=== PATIENT | female | born 1970 | race Caucasian/White ===

== ENCOUNTER → 2017-10-12 14:44 | Outpatient (CLI) | payer MEDICAID, SELFPAY | PROVIDERS: Visit Provider Obstetrics & Gynecology | DX: N94.9 Unspecified condition associated with female genital organs and menstrual cycle (principal); R30.0 Dysuria | CPT/HCPCS: 87070; 87086; 87205 ==

== ENCOUNTER → 2018-06-06 12:04 | Outpatient (CLI) | payer MEDICAID, SELFPAY ==
--- NOTE | 2018-06-06 12:09 | BI_ITS ---
MAMMOGRAPHY - BILATERAL SCREENING REASON FOR EXAM: Female, 48 years old. Routine annual screening examination. PERTINENT HISTORY: Non-contributory. Remote bilateral excisional breast biopsies. TECHNIQUE: Digital bilateral breast deidra (3D mammographic acquisition) in the CC and MLO projections. 2-D mediolateral oblique (MLO) and craniocaudad (CC) views of both breasts were obtained. CAD: Full Field Digital Mammography with Computer Added Detection was performed. COMPARISON: Comparison is made with prior examination dated May 19, 2017. FINDINGS: Breast Composition: There are scattered areas of fibroglandular density. There are no dominant masses or suspicious calcifications. No other significant abnormalities are identified. There has been no significant change since the prior study. BI/SCREENING MAMM (CAD), BILAT IMPRESSION: Stable bilateral screening mammogram. Yearly follow-up mammogram recommended. (A) ASSESSMENT CATEGORY: BIRADS Category 1: Negative. A letter regarding these results will be sent to the patient by the facility within 30 days. Approximately 10% of breast cancers are not detected by mammography. A normal mammogram should not delay biopsy of a clinically suspicious abnormality. [id number] Electronically Signed: Drake Morales MD at 15:46 EDT Tel [phone], Service support ,
== END ==
PROVIDERS: Family Provider Internal Medicine; PCP Internal Medicine; Referring Provider Obstetrics & Gynecology; Visit Provider Obstetrics & Gynecology
DX: Z12.31 Encounter for screening mammogram for malignant neoplasm of breast (principal)
CPT/HCPCS: 77063; 77067

== ENCOUNTER → 2019-01-09 17:48 | Outpatient (CLI) | payer MEDICAID, SELFPAY ==
[2019-01-09 15:12] VITALS: BMI 68.2
[2019-01-12 12:16] LABS: HPV APTIMA, High Risk Negative (Negative)
== END ==
PROVIDERS: Family Provider Internal Medicine; PCP Internal Medicine; Referring Provider Obstetrics & Gynecology; Visit Provider Obstetrics & Gynecology
DX: Z12.4 Encounter for screening for malignant neoplasm of cervix (principal)
CPT/HCPCS: 87624; 88175; G0145

== ENCOUNTER → 2019-04-27 13:18 | Outpatient (CLI) | payer MEDICAID, SELFPAY ==
[2019-04-09 14:25] VITALS: BMI 68.2
--- NOTE | 2019-04-27 13:19 | US_ITS ---
STUDY: ULTRASOUND OF THE FEMALE PELVIS - COMPLETE REASON FOR EXAM: Female, 49 years old. Abnormal uterine bleeding. LMP: April 15, 2019. TECHNIQUE: Transabdominal and Transvaginal TECHNICAL QUALITY: Adequate. COMPARISON: None. FINDINGS: The uterus is anteverted and is in a midline position. The uterus measures 6.3 cm x 4.7 cm x 3.2 cm. There is a Nabothian cyst of the cervix. The endometrium measures 4.0 mm in thickness, and is hyperechoic. There is no demonstrated endometrial mass. Heterogeneous echotexture of the uterus. Findings suggestive of a 3 small uterine fibroids. The largest measures 1.3 cm x 1.3 cm x 0.8 cm. I.U.D. - The patient does not have an I.U.D. The right ovary is visualized. The right ovary measures 2.4 cm x 2.1 cm x 1.8 cm. There is a 1.3 cm x 0.9 cm x 0.7 cm follicle. There is no visualized right adnexal mass or complex lesion. There is normal arterial and normal venous vascularity. The left ovary is visualized. The left ovary measures 1.9 cm x 1.7 cm x 0.9 cm. There is no left ovarian cyst or ovarian mass. There is no visualized left adnexal mass or complex lesion. There is normal arterial and normal venous vascularity. There is no fluid in the cul-de-sac. The pre void volume of the bladder was 412 ml. Polycystic ovary disease: No. US/Transvaginal Non- IMPRESSION: A heterogeneous uterine echotexture with the findings suggest left 3 small fibroids. A follicle is seen in the right ovary. Electronically Signed: Drake Morales, at 15:32 EDT , Service support ,
--- NOTE | 2019-04-27 13:19 | US_ITS ---
STUDY: ULTRASOUND OF THE FEMALE PELVIS - COMPLETE REASON FOR EXAM: Female, 49 years old. Abnormal uterine bleeding. LMP: April 15, 2019. TECHNIQUE: Transabdominal and Transvaginal TECHNICAL QUALITY: Adequate. COMPARISON: None. FINDINGS: The uterus is anteverted and is in a midline position. The uterus measures 6.3 cm x 4.7 cm x 3.2 cm. There is a Nabothian cyst of the cervix. The endometrium measures 4.0 mm in thickness, and is hyperechoic. There is no demonstrated endometrial mass. Heterogeneous echotexture of the uterus. Findings suggestive of a 3 small uterine fibroids. The largest measures 1.3 cm x 1.3 cm x 0.8 cm. I.U.D. - The patient does not have an I.U.D. The right ovary is visualized. The right ovary measures 2.4 cm x 2.1 cm x 1.8 cm. There is a 1.3 cm x 0.9 cm x 0.7 cm follicle. There is no visualized right adnexal mass or complex lesion. There is normal arterial and normal venous vascularity. The left ovary is visualized. The left ovary measures 1.9 cm x 1.7 cm x 0.9 cm. There is no left ovarian cyst or ovarian mass. There is no visualized left adnexal mass or complex lesion. There is normal arterial and normal venous vascularity. There is no fluid in the cul-de-sac. The pre void volume of the bladder was 412 ml. Polycystic ovary disease: No. US/Pelvic (Non ) IMPRESSION: A heterogeneous uterine echotexture with the findings suggest left 3 small fibroids. A follicle is seen in the right ovary. Electronically Signed: Drake Morales, at 15:32 EDT , Service support ,
== END ==
PROVIDERS: Family Provider Internal Medicine; PCP Internal Medicine; Referring Provider Obstetrics & Gynecology; Visit Provider Obstetrics & Gynecology
DX: N93.9 Abnormal uterine and vaginal bleeding, unspecified (principal)
CPT/HCPCS: 76830; 76856

== ENCOUNTER → 2019-05-07 16:41 | Outpatient (CLI) | payer MEDICAID, SELFPAY ==
--- NOTE | 2019-05-07 | EMB_PTH ---
PATIENT: LONNIE DRIVER LOC: [facility] U#:[id number] AGE/SX: 55/F ROOM: RE05/07/[address]: Dr. Laurie Potts MD : 1970 BED: DIS: SPEC #: [id number] RECD: 05/08/19 16:08 STATUS: YESSICA MARYANN #: [id number] JOURDAN: 05/07/19 00:[address]: Laurie Potts DEPT: SURGICAL PATHOLOGY RECD BY: Raffy Velez ENTERED: 05/08/19 13:25 SP TYPE: ENDOM BX/C SUJEY DR: Dr. Roselyn Goins MD Tissues: Endometrium, NOS Procedures: Surgery Specimen Level IV HEADER OPERATION: Endometrial biopsy PRE-OP DIAGNOSIS: Abnormal uterine bleeding TISSUE SUBMITTED: Endometrial biopsy MICROSCOPIC DIAGNOSIS Endometrium, biopsy: Transition endometrium with mild disorder. AM:cece 05/09/19 MICROSCOPIC DESCRIPTION Slides are reviewed. GROSS DESCRIPTION Received is one container labeled with the patient's name and not further designated. The specimen consists of multiple irregular fragments of buenrostro soft tissue that in aggregate measure 1.5 x 1 x 0.1 cm. The specimen is totally submitted in one cassette. / SJ:cece 05/08/19 TC:5 CPT: 01948 ADDENDUM ADDENDUM 05/10/2019 10:33 ADDENDUM 05/10/2019 10:33 ADDENDUM 05/10/2019 10:33 ADDENDUM 05/10/2019 10:33 ADDENDUM 05/10/2019 10:33 There is no evidence of hyperplasia.
[2019-05-07 10:56] VITALS: BMI 41.6
== END ==
PROVIDERS: Family Provider Internal Medicine; PCP Internal Medicine; Referring Provider Obstetrics & Gynecology; Visit Provider Obstetrics & Gynecology
DX: N93.9 Abnormal uterine and vaginal bleeding, unspecified (principal)
CPT/HCPCS: 88305

== ENCOUNTER → 2019-07-02 14:17 | Outpatient (CLI) | payer MEDICAID, SELFPAY ==
[2019-07-02 13:37] VITALS: BMI 41.6
[2019-07-02 14:49] LABS: Absolute Lymphocyte Count 1.58 X10^3/uL (0.83-4.51); Absolute Neutrophil Count 3.3 X10^3/uL (2.0-7.7); Basophil# 0.03 X10^3/uL; Basophil% 0.6 % (0-1); Eosinophil# 0.07 X10^3/uL; Eosinophils% 1.3 % (0-5); Hematocrit 37.8 % (37-47); Hemoglobin 12.1 g/dL (12.0-15.0); Lymphocyte # 1.58 X10^3/ul (4.0); Mean Corpuscular Hgb 29.9 pg (27.0-32.0); Mean Corpuscular Volume 93.3 fL (81-99); Mean Platelet Vol. 10.5 fl (6.2-12.0); Monocyte# 0.41 X10^3/uL; Monocyte% 7.5 % (0-10); NRBC Flagged by Analyzer 0 % (0-5); Neutrophil # 3.34 X10^3/uL (2.7-7.7); Neutrophil % 61.2 % (47-70); Platelet Count 133 K/mm3 (150-450); RBC Distribution Width CV 14.1 % (11.6-14.6); RBC Distribution Width SD 48.3 fl (35.1-43.9); Red Blood Count 4.05 M/mm3 (4.2-5.4); White Blood Count 5.5 K/mm3 (4.4-11.0)
[2019-07-02 15:26] LABS: T4 Free Direct 1.09 ng/dL (0.76-1.46); Thyroid Stim Hormone (TSH) 2.51 uIU/mL (0.358-3.74)
== END ==
PROVIDERS: Family Provider Internal Medicine; PCP Internal Medicine; Referring Provider Obstetrics & Gynecology; Visit Provider Obstetrics & Gynecology
DX: N93.9 Abnormal uterine and vaginal bleeding, unspecified (principal)
CPT/HCPCS: 36415; 84439; 84443; 85025

== ENCOUNTER 2019-10-16 08:26 | Day surgery (SDC) | payer MEDICAID, SELFPAY ==
[2019-10-10 12:04] VITALS: BMI 41.6
--- NOTE | 2019-10-13 03:57 | HP.PCM_ITS ---
- Problem List (1) Abnormal uterine bleeding Status: Acute Comment: failed IUD, plan d and c hysteroscopy rory abaltion IUD removal History and Physical Date of Admission: 10/16/19 Intake Vital Signs 10/10/19 BMI 41.6 10/10/19 Height 5 ft 3 in 10/10/19 Weight: 217 lb 10/10/19 BMI 38.4 10/10/19 BP 126/86 H Intake Visit Reasons: 2 MO FU Allergies adhesive tape Allergy (Verified 10/10/19 12:02) blisters bupropion HCl [From Wellbutrin] Allergy (Verified 10/10/19 12:02) Unknown hydrocodone Allergy (Verified 10/10/19 12:02) Unknown hydroxyzine HCl [From Atarax] Allergy (Verified 10/10/19 12:02) Unknown paliperidone Allergy (Verified 10/10/19 12:02) Other topiramate [From Topamax] Allergy (Verified 10/10/19 12:02) Other tramadol Allergy (Verified 10/10/19 12:02) Unknown ibuprofen Adverse Reaction (Verified 10/10/19 12:02) Unknown Medications Clonazepam [Klonopin] 1 mg PO DAILY 08/22/13 [History Confirmed 10/10/19] Hydroxychloroquine [Plaquenil] 200 mg PO BIDCM 08/22/13 [History Confirmed 10/10/19] Levothyroxine [Synthroid] 25 mcg PO DAILY 08/22/13 [History Confirmed 10/10/19] Loratadine [Claritin] 10 mg PO DAILY PRN 08/22/13 [History Confirmed 10/10/19] Montelukast [Singulair] 10 mg PO QHS 08/22/13 [History Confirmed 10/10/19] traZODone [Desyrel] 200 mg PO QHS 08/22/13 [History Confirmed 10/10/19] Albuterol Aerosols [Ventolin Aerosols] 2.5 mg INHALATION Q4H PRN PRN 09/01/16 [History Confirmed 10/10/19] Albuterol IH (ProAir) [Proair Hfa (SP)Vent Pts] 2 puff INHALATION Q6H PRN PRN 09/01/16 [History Confirmed 10/10/19] Clonazepam [Klonopin] 2 mg PO QHS 09/01/16 [History Confirmed 10/10/19] Docusate Sodium [Colace] 100 mg PO DAILY 09/01/16 [History Confirmed 10/10/19] Ferrous Sulfate [Iron] 325 mg PO DAILY 09/01/16 [History Confirmed 07/02/19] Fluticasone 0.05% [Flonase Nasal [place]] 1 spray NASAL BID 09/01/16 [History Confirmed 10/10/19] Gabapentin [Neurontin] 800 mg PO TIDCM 09/01/16 [History Confirmed 10/10/19] Polyethylene Glycol 3350 [Miralax] 17 gm PO DAILY PRN PRN 09/01/16 [History Confirmed 10/10/19] Ropinirole HCl [Requip] 1 mg PO QHS 09/01/16 [History Confirmed 10/10/19] Triamcinolone 0.1% Cream [Kenalog] 1 applic TP QHS 09/01/16 [History Confirmed 10/10/19] zinc oxide 1 applic TOPICAL TID #56.7 g 12/13/18 [Rx Confirmed 10/10/19] budesonide-formoterol HFA 80 mcg-4.5 mcg/actuation aerosol inhaler 2 puff INHALATION BID 01/09/19 [History Confirmed 10/10/19] calcium citrate-vitamin D3 315 mg-200 unit tablet 1 tab PO TID 01/09/19 [History Confirmed 10/10/19] econazole 1 % topical cream 1 applic TOPICAL DAILY 01/09/19 [History Confirmed 07/02/19] nystatin 100,000 unit/gram topical powder 1 applic TOPICAL BID 01/09/19 [History Confirmed 10/10/19] pediatric multivitamin 1 tab PO DAILY 01/09/19 [History Confirmed 10/10/19] ranitidine HCl 150 mg tablet 150 mg PO DAILY 01/09/19 [History Confirmed 10/10/19] venlafaxine 75 mg tablet 75 mg PO BID 01/09/19 [History Confirmed 10/10/19] erythromycin 5 mg/gram (0.5 %) eye ointment 1 applic OPHTHALMIC DAILY 04/09/19 [History Confirmed 10/10/19] ipratropium bromide 0.03 % nasal spray 2 spray INTRANASAL BID 04/09/19 [History Confirmed 10/10/19] magnesium hydroxide 2,400 mg/10 mL oral suspension 2.5 ml PO QHS 07/02/19 [History Confirmed 10/10/19] meclizine 25 mg tablet 25 mg PO DAILY 07/02/19 [History Confirmed 10/10/19] omeprazole 40 mg capsule,delayed release 40 mg PO DAILY 07/02/19 [History Confirmed 10/10/19] ondansetron HCl 4 mg/5 mL oral solution 4 mg PO Q8H 07/02/19 [History Confirmed 10/10/19] amlodipine 2.5 mg tablet 2.5 mg PO DAILY 10/10/19 [History Confirmed 10/10/19] levonorgestrel 20 mcg/24 hours (5 yrs) 52 mg intrauterine device 1 device INTRAUTERINE ONCE 10/10/19 [History Confirmed 10/10/19] mecobalamin (vitamin B12) 1,000 mcg chewable tablet mcg PO 10/10/19 [History Confirmed 10/10/19] menthol 0.44 %-zinc oxide 20.6 % topical ointment 1 applic TOPICAL 4-6XD PRN 10/10/19 [History Confirmed 10/10/19] metronidazole 0.75 % topical cream 1 applic TOPICAL DAILY 10/10/19 [History Confirmed 10/10/19] mupirocin 2 % topical ointment 1 applic TOPICAL BID 10/10/19 [History Confirmed 10/10/19] sucralfate 1 gram tablet 1 g PO BID 10/10/19 [History Confirmed 10/10/19] PFSH Social History (Updated 10/10/19 @ 12:[address] Laurie Potts MD) Smoking Status: Never smoker alcohol intake: never substance use type: does not use caffeine: Yes what type of physical activity do you participate in: walking seatbelt use: always do you feel safe at home: Yes additional social history: single- disability HPI 2 MO FU: Details: LONNIE DRIVER is a 49 year old who presents for persistent AUB. she is still bleeding most days and she has been on the mirena and it's not controlling the bleeding the way it has in the past. she is wanting different treatment Female Reproductive History Cycle Length: <21 Questions: Metorrhagia: Yes, Sexually active: No, Dyspareunia: No, PCB: No Pregancy History 0 Elective abortions Hx Para Spontaneous abortions Hx # Term Pregnancies Ectopic pregnancies Hx # Pregnancies Multiple births # of living children ROS ENT ENT: Denies dry mouth GI GI: Reports as per HPI; denies abdominal pain, constipation, nausea or vomiting : Reports as per HPI; denies difficulty urinating, painful urination, blood in urine, pelvic pain, urinary frequency, urinary incontinence, urinary hesitancy, urinary urgency, vaginal discharge, vaginal dryness, vaginal odor, vaginal itching or other Exam Const General: cooperative, healthy appearing, comfortable, no acute distress, well developed Orientation: alert HENMT Head: normal to inspection, normocephalic Ears: hearing grossly normal bilaterally, external ears normal Nose: external nose normal, nares normal Face and sinus: normal facial exam Neck Neck: normal visual inspection, no lymphadenopathy, trachea midline Thyroid: thyroid normal Resp Effort & Inspection: normal respiratory effort Musc Other: gross motor intact no deficits, full bilateral strength Skin General: no rashes or lesions noted Neuro Motor: muscle tone normal throughout Assessment & Plan Problems 1. Abnormal uterine bleeding N93.9 emb done and inserted mirena iud for AUB. if peristent AUB- consider ablationcheck cbc tsh Plan plan d and c hysteroscopy rory ablation. After discussing the patient's diagnosis and treatment plan options, patient wishes to proceed with surgical management. I have discussed with the patient the risks, benefits, and alternatives of the procedure which include but are not limited to risks of anesthesia, bleeding, infection, possible damage to bowel, bladder, or surrou nding vasculature which could lead to additional surgery to evaluate any complications. Patient agrees to procedure and wishes to proceed. ACOG/uptodate references given for additional information regarding procedure. Coding Level of Care Code Off vis,est,level 4 Diagnoses Abnormal uterine bleeding N93.9
[2019-10-16] VITALS (9 sets, daily range): BP systolic 102–152; BP diastolic 50–81; PULSE 47–67; RESP 16; TEMP 36.3–36.8; O2SAT 98–100; BMI 38.9
--- NOTE | 2019-10-16 08:32 | EKG12_ITS ---
Test Reason : PREOP Blood Pressure : / mmHG Vent. Rate : 049 BPM Atrial Rate : 049 BPM P-R Int : 170 ms QRS Dur : 100 ms QT Int : 424 ms P-R-T Axes : 018 021 021 degrees QTc Int : 383 ms Sinus bradycardia Otherwise normal ECG When compared with ECG of 22-AUG-2013 13:19, Vent. rate has decreased BY 27 BPM Confirmed by JONNY FAULKNER MD ([id number]), multimedia editor MIRNA COLEY ([id number]) on 10/22/2019 4:10:01 PM Referred By: Laurie Potts Confirmed By:JONNY FAULKNER MD
--- NOTE | 2019-10-16 08:44 | PCM.OPRPT ---
Problem List (1) Abnormal uterine bleeding Status: Acute Comment: failed IUD, plan d and c hysteroscopy ninfa abaltion IUD removal Report of Operation Date of Procedure: 10/16/19 Pre-Operative Diagnosis: abnormal uterine bleeding Post-Operative Diagnosis: same Surgery/Procedure Performed:: d and c hysteroscopy ninfa ablation Description of Surgical Findings:: nl uterine lining Type of Anesthesia:: Local MAC Special Medications: none Specimen's removed: emc, iud Drains: none Estimated Blood Loss (mL): 25 Fluids Replaced: crystalloid Description of Procedure: Patient was prepped and draped in a normal sterile fashion under MAC anesthesia. A weighted speculum was placed in the vagina and the anterior lip of the cervix was grasped with a single-tooth tenaculum. iud removed without difficulty. A paracervical block was placed with 1% lidocaine. Cervix was progressively dilated to allow passage of a 5 mm hysteroscope. The lining was fully visualized and noted to have no significant abnormalities. Uterine sounded to 9 cm. Curettage was performed and small amount of tissue was removed, sent to pathology. The Ninfa device was opened and the cavity length was found to be 4.5 cm. Device was inserted into the uterus and balloon inflated and device deployed. Treatment cycle was attempted after passing the cavity integrity safety assessment and a 006 area was encountered. A new handpiece was brought out and used. Integrity of the cavity was confirmed and a 2 minute treatment cycle was completed without complication. All instruments were removed from the vagina and excellent hemostasis was noted. Patient was awoken and taken to recovery in stable condition. Grafts/Implants Used: none - Complications none - Admit VTE Documentation VTE Present on Admission: No VTE Mechan Device Prophylaxis: SCD's Multi Select Codes - Urinary/Genital Urinary/Genital CPT Codes: 24724 Ninfa/Novasure, 35803 Hysteroscopy, diagnostic - and iud removal 29410
--- NOTE | 2019-10-16 08:51 | DCINST_ITS ---
Discharge Diet: No Restrictions Discharge Activity: Return to Normal Activity, May Shower, May Take a Tub Bath Allergies/Adverse Reactions: Allergies adhesive tape Allergy (Verified 10/16/19 08:48) blisters bupropion HCl [From Wellbutrin] Allergy (Verified 10/16/19 08:48) Unknown hydrocodone Allergy (Verified 10/16/19 08:48) Unknown hydroxyzine HCl [From Atarax] Allergy (Verified 10/16/19 08:48) Unknown paliperidone Allergy (Verified 10/16/19 08:48) Other topiramate [From Topamax] Allergy (Verified 10/16/19 08:48) Other tramadol Allergy (Verified 10/16/19 08:48) Unknown ibuprofen Adverse Reaction (Verified 10/16/19 08:48) Unknown Medications to take at Discharge Clonazepam [Klonopin] 1 mg PO DAILY 08/22/13 Hydroxychloroquine [Plaquenil] 200 mg PO BIDCM 08/22/13 Levothyroxine [Synthroid] 25 mcg PO DAILY 08/22/13 Loratadine [Claritin] 10 mg PO DAILY 08/22/13 Montelukast [Singulair] 10 mg PO QHS 08/22/13 traZODone [Desyrel] 200 mg PO QHS 08/22/13 Albuterol Aerosols [Ventolin Aerosols] 2.5 mg INHALATION Q4H PRN PRN 09/01/16 Albuterol IH (ProAir) [Proair Hfa (SP)Vent Pts] 2 puff INHALATION Q6H PRN PRN 09/01/16 Clonazepam [Klonopin] 2 mg PO QHS 09/01/16 Docusate Sodium [Colace] 100 mg PO DAILY 09/01/16 Ferrous Sulfate [Iron] 325 mg PO DAILY 09/01/16 Fluticasone 0.05% [Flonase Nasal [place]] 2 spray NASAL DAILY 09/01/16 Gabapentin [Neurontin] 800 mg PO TIDCM 09/01/16 Polyethylene Glycol 3350 [Miralax] 17 gm PO DAILY PRN PRN 09/01/16 Ropinirole HCl [Requip] 1 mg PO QHS 09/01/16 Triamcinolone 0.1% Cream [Kenalog] 1 applic TP QHS 09/01/16 zinc oxide 1 applic TOPICAL TID #56.7 g 12/13/18 budesonide-formoterol HFA 80 mcg-4.5 mcg/actuation aerosol inhaler 2 puff INHALATION BID 01/09/19 calcium citrate-vitamin D3 315 mg-200 unit tablet 2 tab PO TID 01/09/19 econazole 1 % topical cream 1 applic TOPICAL DAILY 01/09/19 nystatin 100,000 unit/gram topical powder 1 applic TOPICAL QHS 01/09/19 pediatric multivitamin 1 tab PO DAILY 01/09/19 ranitidine HCl 150 mg tablet 150 mg PO 1200 01/09/19 venlafaxine 75 mg tablet 75 mg PO BID 01/09/19 erythromycin 5 mg/gram (0.5 %) eye ointment 1 applic OPHTHALMIC DAILY 04/09/19 ipratropium bromide 0.03 % nasal spray 2 spray INTRANASAL DAILY 04/09/19 meclizine 25 mg tablet 25 mg PO DAILY PRN 07/02/19 omeprazole 40 mg capsule,delayed release 40 mg PO QHS 07/02/19 ondansetron HCl 4 mg/5 mL oral solution 4 mg PO Q8H PRN 07/02/19 amlodipine 2.5 mg tablet 2.5 mg PO DAILY 10/10/19 levonorgestrel 20 mcg/24 hours (5 yrs) 52 mg intrauterine device 1 device INTRAUTERINE ONCE 10/10/19 mecobalamin (vitamin B12) 1,000 mcg chewable tablet 1,000 mcg PO DAILY 10/10/19 menthol 0.44 %-zinc oxide 20.6 % topical ointment 1 applic TOPICAL 4-6XD PRN 10/10/19 metronidazole 0.75 % topical cream 1 applic TOPICAL DAILY 10/10/19 mupirocin 2 % topical ointment 1 applic TOPICAL BID 10/10/19 sucralfate 1 gram tablet 1 g PO 4X/DAY 10/10/19 Orders to be completed after discharge: Type & Screen Time Frame: 10/16/19, Facility: [facility], Location: Laboratory Basic Metabolic Profile (BMP) Time Frame: 10/16/19, Facility: [facility], Location: Laboratory CBC-Complete Blood Cnt No Diff Time Frame: 10/16/19, Facility: [facility], Location: Laboratory ,Urine Time Frame: 10/16/19, Facility: [facility], Location: Laboratory Primary Care Physician: Roselyn Goins MD [Primary Care Provider] - Test Results: Test results from this visit will be discussed in further detail at your follow- up appointment, if applicable. Please Follow Up With: Laurie Potts MD - [phone]
[2019-10-16 08:57] LABS: Internal QC Validated? YES +Cl - CLEAR BKGD; Pregnancy, Urine Negative Negative
[2019-10-16 09:07] LABS: Hematocrit 38.9 % (37-47); Hemoglobin 12.8 g/dL (12.0-15.0); Mean Corp Hgb Conc 32.9 g/dL (32-36); Mean Corpuscular Hgb 31.1 pg (27.0-32.0); Mean Corpuscular Volume 94.6 fL (81-99); Mean Platelet Vol. 11.4 fl (6.2-12.0); Platelet Count 109 K/mm3 (150-450); RBC Distribution Width CV 13.2 % (11.6-14.6); RBC Distribution Width SD 44.9 fl (35.1-43.9); Red Blood Count 4.11 M/mm3 (4.2-5.4); White Blood Count 4.5 K/mm3 (4.4-11.0)
[2019-10-16 09:20] LABS: Anion Gap 5 (5-15); BUN 12 mg/dL (7-18); BUN/Creat Ratio 18.3 RATIO (10-20); Calcium,Total 8.9 mg/dL (8.5-10.1); Chloride 105 mmol/L (98-107); Creatinine, Serum 0.66 mg/dL (0.55-1.02); EST Glomerular Filtration Rate 101 mL/min (>60); Est Glom Filt Rate - Afr Amer 122 mL/min (>60); Estimated Creatinine Clearance 83.42 ml/min; Glucose 68 mg/dL (74-106); Potassium 3.8 mmol/L (3.5-5.1); Sodium Level 142 mmol/L (136-145)
[2019-10-16] MEDS: Lactated Ringers 1,000 ML 100 ML IV (09:20)
--- NOTE | 2019-10-16 09:55 | EMB_PTH ---
PATIENT: LONNIE DRIVER LOC: [facility] [place] U#:[id number] AGE/SX: 49/F ROOM: RE10/16/[address]: Dr. Laurie Potts MD : 1970 BED: DIS: 10/16/2019 SPEC #: [id number] RECD: 10/16/19 13:04 STATUS: YESSICA MARYANN #: [id number] JOURDAN: 10/16/19 09:[address]: Laurie Potts DEPT: SURGICAL PATHOLOGY RECD BY: Raffy Velez ENTERED: 10/16/19 13:40 SP TYPE: ENDOM BX/C OTHR DR: Dr. Roselyn Goins MD Tissues: Endometrium, NOS Procedures: Surgery Specimen Level IV HEADER OPERATION: Hysteroscopy, D & C Ninfa ablation, IUD removal PRE-OP DIAGNOSIS: Abnormal uterine bleeding TISSUE SUBMITTED: Endometrial curettings MICROSCOPIC DIAGNOSIS Endometrial curettings: Consistent with exogenous hormone effect. See comment. SJ:cece 10/17/19 COMMENT Please make reference to previous specimen ([id number]) endometrium, biopsy with diagnosis of transitional endometrium with mild disorder. Clinical correlation and appropriate follow up are necessary. MICROSCOPIC DESCRIPTION Slides are reviewed. GROSS DESCRIPTION Received in fixative is one container labeled with the patient's name and designated endometrial curettings. The specimen consists of multiple fragments of hemorrhagic soft tissue that in aggregate measure 3 x 2.5 x 0.2 cm. The specimen is totally submitted in one cassette. / RASHAAD:cece 10/16/19 TC:5 CPT: 24607
[2019-10-16] MEDS: Acetaminophen 500 MG Tablet 1000 MG PO (13:13)
== END 2019-10-16 13:27 | disposition home or self-care (01) ==
LOC: SDC 08:28 → AC 08:29
PROVIDERS: Anesthesiology; PCP Internal Medicine; Referring Provider Obstetrics & Gynecology; Visit Provider Obstetrics & Gynecology
PROC: 0U5B8ZZ Destruction of Endometrium, Via Natural or Artificial Opening Endoscopic (ICD-10-PCS; CPT 58558; principal; 2019-10-16 09:40)
DX: N93.9 Abnormal uterine and vaginal bleeding, unspecified (principal); Z30.432 Encounter for removal of intrauterine contraceptive device; Z79.3 Long term (current) use of hormonal contraceptives; Z88.5 Allergy status to narcotic agent; Z88.6 Allergy status to analgesic agent; Z88.8 Allergy status to other drugs, medicaments and biological substances
CPT/HCPCS: 58301; 58563; 36415; 80048; 81025; 85027; 86850; 86900; 86901; 88305; 93005; J7120; J2405

== ENCOUNTER → 2022-09-02 | Outpatient (CLI) | payer MEDICAID, SELFPAY ==
[2022-09-02 14:56] LABS: Prolactin 8.2 ng/mL
== END | disposition home or self-care (01) ==
LOC: PAVLAB 13:58
PROVIDERS: PCP Internal Medicine; Referring Provider Obstetrics & Gynecology; Visit Provider Obstetrics & Gynecology
DX: N64.3 Galactorrhea not associated with childbirth (principal)
CPT/HCPCS: 36415; 84146

== ENCOUNTER → 2024-03-13 | Outpatient (CLI) | payer MEDICAID, SELFPAY ==
--- NOTE | 2024-03-13 13:30 | RAD_ITS ---
INDICATION: CERVICAL SPONDYLOSIS EXAMINATION/TECHNIQUE: X-RAY - XR Spine Cervical 4 or 5 Views COMPARISON: No relevant prior comparison study available FINDINGS: VERTEBRAE: Preserved vertebral body height. No fracture. No spondylolisthesis. Preservation of the normal cervical lordosis. Mild facet arthropathy particularly at the levels of C4-C5 and C5-C6. DISCS: Mild narrowing of C4-C5 disc space. Endplate spondylosis at multiple levels. NECK SOFT TISSUES: No prevertebral soft tissue widening. LUNG APICES: Clear. RAD/Cerv Spine 4 or 5 Views IMPRESSION: Mild degenerative changes.. Electronically Signed: Vito Cohn MD at 14:44 EDT ,
== END | disposition home or self-care (01) ==
LOC: RAD 13:22
PROVIDERS: Referring Provider Anesthesiology; Visit Provider Anesthesiology
DX: M47.812 Spondylosis without myelopathy or radiculopathy, cervical region (principal)
CPT/HCPCS: 72050

== ENCOUNTER → 2024-04-27 | Outpatient (CLI) | payer MEDICAID, SELFPAY ==
--- NOTE | 2024-04-27 10:40 | RAD_ITS ---
STUDY: X-RAY - LEFT HAND REASON FOR EXAM: Female, 54 years old. And wrist pain. TECHNIQUE: 3 view(s) of the hand. COMPARISON: None. FINDINGS: Osteopenia. Mild arthrosis of the radiocarpal articulation. Mild arthrosis of the distal radioulnar joint. Moderate arthrosis of the radial carpal row. Moderate to severe arthrosis of the first CMC joint. Moderate arthrosis of the MCP and IP joints.. Normal soft tissues. RAD/Hand Min 3 Views IMPRESSION: Osteopenia with osteoarthritic changes as described. No acute abnormality or erosive changes. Electronically Signed: Rambo Bledsoe MD at 11:30 EDT ,
--- NOTE | 2024-04-27 10:41 | RAD_ITS ---
STUDY: X-RAY - RIGHT HAND REASON FOR EXAM: Female, 54 years old. Wrist and hand pain. TECHNIQUE: 3 view(s) of the hand. COMPARISON: None. FINDINGS: Osteopenia. Mild arthrosis of the radiocarpal articulation. Mild arthrosis of the distal radioulnar joint. Moderate arthrosis of the radial carpal row. Moderate to severe arthrosis of the first CMC joint. Moderate arthrosis of the MCP and IP joints.. Normal soft tissues. RAD/Hand Min 3 Views IMPRESSION: Osteopenia with osteoarthritic changes as described. No acute abnormality or erosive changes. Electronically Signed: Rambo Bledsoe MD at 11:30 EDT ,
--- NOTE | 2024-04-27 10:41 | RAD_ITS ---
STUDY: X-RAY - RIGHT WRIST REASON FOR EXAM: Female, 54 years old. WRIST AND HAND PAIN TECHNIQUE: view(s) of the wrist were obtained. COMPARISON: None. FINDINGS: Osteopenia. Mild arthrosis of the radiocarpal articulation. Mild arthrosis of the distal radioulnar joint. Moderate arthrosis of the radial carpal row. Moderate to severe arthrosis of the first CMC joint. Deformity of the head of the fifth metacarpal from prior injury. Moderate arthrosis of the visualized MCP and IP joints.. Normal soft tissues. RAD/Wrist min 3 Views IMPRESSION: Osteopenia with osteoarthritic changes as described. No acute abnormality or erosive changes. Electronically Signed: Rambo Bledsoe MD at 11:33 EDT ,
--- NOTE | 2024-04-27 10:45 | RAD_ITS ---
STUDY: X-RAY - LEFT WRIST REASON FOR EXAM: Female, 54 years old. Hand and wrist pain. TECHNIQUE: 3 view(s) of the wrist were obtained. COMPARISON: None. FINDINGS: Osteopenia. Mild arthrosis of the radiocarpal articulation. Mild arthrosis of the distal radioulnar joint. Moderate arthrosis of the radial carpal row. Moderate to severe arthrosis of the first CMC joint. Moderate arthrosis of the visualized MCP and IP joints.. Normal soft tissues. RAD/Wrist min 3 Views IMPRESSION: Osteopenia with osteoarthritic changes as described. No acute abnormality or erosive changes. Electronically Signed: Rambo Bledsoe MD at 11:32 EDT ,
== END | disposition home or self-care (01) ==
LOC: RAD 10:39
PROVIDERS: Referring Provider Anesthesiology; Visit Provider Anesthesiology
DX: M25.531 Pain in right wrist (principal); M25.532 Pain in left wrist; M79.644 Pain in right finger(s); M79.645 Pain in left finger(s)
CPT/HCPCS: 73110; 73130

== ENCOUNTER → 2024-12-25 | Outpatient (CLI) | payer MEDICAID, SELFPAY ==
--- NOTE | 2024-12-25 10:46 | RAD_ITS ---
PROCEDURE: THORACIC SPINE 3 VIEWS 12/25/2024 REASON FOR EXAM: LUMBAR SPONDYLOSIS TECHNIQUE: Four views of the thoracic spine COMPARISON: None FINDINGS: Thoracic vertebral body heights and alignment are maintained. Mild multilevel endplate osteophyte formation and disc space narrowing. Visualized lung huggins are clear. RAD/Thoracic Spine 3 Views IMPRESSION: Mild multilevel degenerative changes of the thoracic spine. Reading Location: [facility]
== END | disposition home or self-care (01) ==
LOC: RAD 10:45
PROVIDERS: PCP Family Medicine; Referring Provider Anesthesiology; Visit Provider Anesthesiology
DX: M47.816 Spondylosis without myelopathy or radiculopathy, lumbar region (principal)
CPT/HCPCS: 72072